=== PATIENT | female | born 1975 | race Caucasian/White ===

== ENCOUNTER 2017-10-09 21:25 | Emergency (ER) | payer OTHER, SELFPAY ==
[2017-10-09 21:26] VITALS: BP 178/93; PULSE 111; RESP 16; TEMP 35.7; O2SAT 99; BMI 40.1
--- NOTE | 2017-10-09 21:51 | ED.VISSUMM ---
- ER Visit Summary Date of Service: 10/09/17 Chief Complaint: Left shoulder pain and arm History of Present Illness: The patient is a 41 F states that she developed left neck and shoulder pain yesterday. It gradually worsened throughout the day. She does have some pain down into her left arm. She describes a numbness sensation in her left arm. She does not have a known injury. She is right-hand dominant. Physical Examination: Vital signs significant for blood pressure 178/93. Patient sitting upright in bed. She is in no acute distress. Head neck examination reveals no sign of trauma. She does have reproducible tenderness in the left low cervical paraspinals with palpable muscle spasm. Heart is regular rate and rhythm. Lung sounds are clear. Back examination reveals reproducible tenderness across the top of the left shoulder and upper scapula. There is palpable muscle spasm. Extremity examination reveals mild tenderness of the left upper arm. She has full range of motion. She has strong pulses and normal strength. She does report slight decreased sensation to light touch of the left upper extremity. Test Results: [] Emergency Department Course and Treatment: Discussed with patient I believe her symptoms are secondary to a pinched nerve from the muscle spasm. She took multiple doses of Advil and naproxen in the last 3-1/2 hours. She is given a dose of Flexeril here. She given prescriptions for Naprosyn and Flexeril at home. She is written off work tonight and lifting restrictions for the next 3 days. Treatment Plan: [] Disposition: Discharge Impression: Muscle spasm with cervical radiculopathy This note was generated with [employer] dictation software. It may contain incorrect words, spelling, and punctuation that were not noted in review of the chart prior to signing ED Disposition - Plan for ED Patient: Disposition: Home or Assisted Living Chief Complaint: Other, Pain/Inj Instructions: ED Spasm Muscle, ED Cervical Radiculopathy Prescriptions: Naproxen [Naprosyn] 500 mg PO BID PRN #20 tablet Cyclobenzaprine [Flexeril] 10 mg PO TID PRN #20 tablet PRN Reason: Muscle Spasm
== END 2017-10-09 22:07 | disposition home or self-care (01) ==
LOC: ED 22:00
PROVIDERS: Emergency Provider Emergency Medicine
DX: M62.838 Other muscle spasm (principal); M54.12 Radiculopathy, cervical region; E03.9 Hypothyroidism, unspecified; Z79.899 Other long term (current) drug therapy; Z72.0 Tobacco use
CPT/HCPCS: 99282